=== PATIENT | female | born 1970 | race Caucasian/White ===

== ENCOUNTER → 2017-03-12 | Outpatient (CLI) | payer OTHER ==
[~2017-03-12] MED LIST: CHOL2000 PO; COEN1CAP7 PO; EFF/375 PO; LORA-741 PO; MULT-506 PO
--- NOTE | 2017-03-12 18:02 | DIAGNOSTIC IMAGING REPORT ---
TWO VIEW CHEST CLINICAL HISTORY: Preoperative examination. FINDINGS: PA and lateral chest radiographs are obtained. No prior studies are available for comparison at the time of dictation. The cardiomediastinal silhouette is unremarkable. The lungs and pleural spaces are clear. There is no pneumothorax. The bony thorax appears intact. Bilateral breast implants are suggested. Surgical clips are present in the axillae. IMPRESSION: No active disease in the chest. Electronically signed by: Talha Thurman M.D. 03/12/2017 6:01 PM Dictated Date/Time: 03/12/2017 6:00 PM
[2017-03-12 18:20] LABS: BASO % 0.4 %; BASO ABS # 0.02 K/uL (0-0.2); COMPLETE YES; EOS % 2.6 %; HEMATOCRIT 42.5 % (37-47); IG% 0.2 %; LYMPH ABS # 2.06 K/uL (1.2-3.4); MEAN CELL VOLUME 92.6 fL (80-100); MEAN CORPUSCULAR HEMOGLOBIN 30.7 pg (25-34); MEAN CORPUSCULAR HGB CONC 33.2 g/dl (32-36); MEAN PLATELET VOLUME 8.3 fL (7.4-10.4); MONO % 9.6 %; NEUT % 46.2 %; PLATELET COUNT 290 K/uL (130-400); RED BLOOD COUNT 4.59 M/uL (4.2-5.4); WHITE BLOOD COUNT 5.02 K/uL (4.8-10.8)
[2017-03-12 18:28] LABS: INR 0.9 (0.9-1.1)
[2017-03-12 18:40] LABS: BLOOD UREA NITROGEN 9 mg/dl (7-18); BUN/CREATININE RATIO 13.4 (10-20); CALCIUM 9.9 mg/dl (8.5-10.1); CARBON DIOXIDE 30 mmol/L (21-32); CHLORIDE 104 mmol/L (98-107); CREATININE 0.67 mg/dl (0.60-1.20); GLUCOSE 65 mg/dl (70-99); POTASSIUM 3.8 mmol/L (3.5-5.1); SODIUM 138 mmol/L (136-145)
== END | disposition home or self-care (01) ==
LOC: C.RAD 16:47
PROVIDERS: ATTEND Plastic Surgery
DX: Z98.82 Breast implant status (principal)

== ENCOUNTER → 2017-03-21 | Day surgery (SDC) | payer OTHER ==
[2017-03-20 13:35] VITALS: Ht 162.6 cm; Wt 60.9 kg
[~2017-03-21] VITALS: Ht 162.6 cm; Wt 60.9 kg
[~2017-03-21] MED LIST changes: +ACETAMINOPHEN IV 650 MG in EMPTY BAG 0 ML IV PRN; +ATROPINE SULFATE 0.1 MG/ML 5ML SYR IV PRN; +BUPIVACAINE 0.25% 30 ML VIAL ONE; +CEFAZOLIN 1000MG/55 ML D5W IV SCH; +DiphenhydrAMINE HCL 50 MG/ML VIAL IV STA; +DiphenhydrAMINE HCL 50 MG/ML VIAL ONE; +ENOXAPARIN 40 MG/0.4 ML SYR SQ SCH; +EpHEDrine SULFATE INJ 50 MG/ML AMP IV PRN; +FENTANYL CITRATE INJ 50 MCG/1 ML 2 ML VIAL IV PRN; +FENTANYL CITRATE INJ 50 MCG/1 ML 2 ML VIAL ONE; +FLUMAZENIL 0.1 MG/1 ML 10 ML VIAL IV PRN; +GLYCOPYRROLATE INJ 0.2 MG/ML VIAL ONE; +HYDROCODONE/ACETAMOPHEN 5/325MG TAB PO PRN; +HYDROmorphone INJ 0.5 MG/0.5 ML SYR ONE; +HYDROmorphone INJ 2 MG/ML SYR/VIAL IV PRN; +LABETALOL HCL IV 5 MG/ML 20ML IV PRN; +LACTATED RINGER'S 1000ML 1,000 ML IV SCH; +LIDOCAINE HCL 2% 2 ML VIAL (20MG/ML) ONE; +LIDOCAINE/EPINEPHRINE 1% INJ 50 ML VIAL ONE; +METOCLOPRAMIDE HCL INJ 5 MG/ML 2 ML VIAL IV PRN; +METOCLOPRAMIDE HCL INJ 5 MG/ML 2 ML VIAL ONE; +MIDAZOLAM HCL 1 MG/ML 2ML VIAL ONE; +NALOXONE HCL 0.4 MG/1 ML VIAL/CARP IV PRN; +NEOSTIGMINE METHYLSULFATE 5 MG/5 ML SYR ONE; +ONDANSETRON INJ 2 MG/ML 2 ML VIAL IV PRN; +ONDANSETRON INJ 2 MG/ML 2 ML VIAL ONE; +PATIENT'S ALLERGY INFO NEEDS ENTERED SCH; +PHENYLEPHRINE 100MCG/ML 5ML SYR IV PRN; +PROPOFOL IV EMULSION 10 MG/ML 20 ML VIAL IV ONE; +SCOPOLAMINE 1.5 MG TDSY TD ONE; +SODIUM CHLORIDE 0.9% 1000ML 1,000 ML IV SCH
--- NOTE | 2017-03-21 09:50 | History & Physical Bridge - SC ---
H&P Re-Evaluation Bridge Note: I have examined the patient, reviewed the History & Physical and in the interval since the performance of the History & Physical I have noted the following changes of clinical significance: No changes noted
--- NOTE | 2017-03-21 13:12 | [facility] Post Operative Brief Note ---
Immediate Operative Summary Operative Date Mar 21, 2017. Pre-Operative Diagnosis History of Breast Reconstruction with Silicone Implants Post-Operative Diagnosis same Procedure(s) Performed Bilateral Breast Implant Removal With Capsulectomy Surgeon Dr. Martin Bhandari Gate Tender Surgeon(s) CATRACHO Mendez Estimated Blood Loss 25CC Findings soft pliable capsules, intact implants, no palpable masses Specimens A. Left Breast Scar B. Left Breast Implant C. Left Breast Capsule D. Right Breast Scar E. Right Breast Implant F. Right Breast Capsule Drains LIZBETH x2 Anesthesia GET Complication(s) None Disposition Recovery Room / PACU
--- NOTE | 2017-03-21 13:17 | Discharge Instructions-SurgCtr ---
Discharge Instructions Date of Service Mar 21, 2017. Visit Reason for Visit: Hx Breast Reconstruction With Silicone Implants Discharge Discharge Diagnosis / Problem: s/p breast reconstruction Discharge Goals Goal(s): Decrease discomfort, Improve function Activity Recommendations Activity Limitations: as noted below Anesthesia . Post Anesthesia Instructions: If you have had General Anesthesia or IV Sedation: * Do not drive today. * Resume driving when surgeon permits. * Do not make important decisions or sign legal documents today. * Call surgeon for: 1. Temperature elevations greater than 101 degrees F. 2. Uncontrollable pain. 3. Excessive bleeding. 4. Persistent nausea and vomiting. 5. Medication intolerance (nausea, vomiting or rash). * For nausea and vomiting use only clear liquids such as: tea, soda, bouillon until nausea subsides, then gradually increase diet as tolerated. * If you have any concerns or questions, call your surgeon's office. If physician is unavailable and it is an emergency, call 911 or go to the nearest emergency room. . Instructions / Follow-Up Instructions / Follow-Up ACTIVITY RECOMMENDATIONS: __Normal activities _x_No bending, lifting or straining __No driving _x_Driving allowed when you are off pain medications _x_Walking permitted __You should have help at home for ___ days DRESSINGS: __No dressings required _x_Keep dressings dry/in place until first office visit __Remove dressings ___ and leave dressings off __Apply ice ___ days __Remove dressings and reapply garment __Apply antibiotic ointment (Bacitracin, Neosporin, etc) to wounds 3-4 times/ day for 10 days BATHING: _x_Keep dressings dry _x_Sponge bathing permitted __Showering permitted _x_No swimming, hot tubs or soaking in a tub MEDICATIONS: Resume previous medications unless instructed otherwise by your surgeon. _x_Do not use aspirin, Motrin, Advil or Ibuprofen as these may promote bleeding. Please use Tylenol. __Prescription(s) provided: pain meds given in office OTHER INSTRUCTIONS: _x_Record drain output 2-3 times per day SPECIAL CARE INSTRUCTIONS: * It is normal to have a mild fever after surgery. If your temperature is higher than 101.5 degrees F, please call the office at [phone]. * Constipation is a typical side effect of pain medication. An over-the- counter stool softener will help relieve this. * Leaking around surgical drains may occur and should not cause concern. Sometimes these drains become clogged. If this happens, remove the bulb and milk the clot out of the tube, then replace the bulb. * Drainage from wounds after liposuction is normal and should be expected. Garments will become soiled. You should protect furniture and bedding. This drainage should mostly subside within 2-3 days. Leave garments in place unless instructed to remove them. * If you have unusual drainage from a wound or are concerned you have an infection or have any questions or concerns, please call the office at [phone]. FOLLOW UP VISIT: If not already scheduled, please call the office, , when you return home after surgery to schedule an appointment to be seen in _3__ days. Diet Recommendations Home Diet: resume previous diet Procedures Procedures Performed: Bilateral Breast Implant Removal With Capsulectomy Pending Studies Studies pending at discharge: no Medical Emergencies . Who to Call and When: Medical Emergencies: If at any time you feel your situation is an emergency, please call 911 immediately. . Non-Emergent Contact Non-Emergency issues call your: Primary Care Provider, Surgeon Call Non-Emergent contact if: temperature is above 101.5, your pain is concerning you, wound has increased drainage, wound has increased redness . . "Provider Documentation" section prepared by Libia Bhandari. . [place] Drug Monitoring Program Search Results: patient reviewed within database, no issues identified Drug Monitoring Findings: documented in office chart
[2017-03-21] MEDS: MEPERIDINE HCL 25 MG/ML CARP IV PRN ×2 (13:53→13:59)
[2017-03-21 14:42] VITALS: TEMP 37.6
--- NOTE | 2017-03-21 14:58 | Anesthesia Progress Nt - [facility] ---
Anesthesia Post Op Note Date & Time Mar 21, 2017 at 14:57 Vital Signs Pain Intensity: 2 Vital Signs Past 12 Hours Date Time Temp Pulse Resp B/P (MAP) Pulse Ox O2 Delivery O2 Flow Rate FiO2 03/21/17 14:42 37.6 96 16 141/88 (105) 98 Room Air 03/21/17 14:28 37.2 93 16 135/74 97 Room Air 03/21/17 14:27 89 13 03/21/17 14:27 89 13 97 03/21/17 14:25 138/91 03/21/17 14:22 102 23 94 03/21/17 14:22 99 23 03/21/17 14:20 135/89 03/21/17 14:17 97 16 100 03/21/17 14:17 97 16 03/21/17 14:16 133/93 03/21/17 14:12 93 13 03/21/17 14:12 94 13 100 03/21/17 14:11 139/89 03/21/17 14:07 94 17 03/21/17 14:07 93 17 99 03/21/17 14:06 127/103 03/21/17 14:02 101 29 94 03/21/17 14:02 98 29 03/21/17 14:01 136/93 03/21/17 13:57 91 21 100 03/21/17 13:57 92 21 03/21/17 13:56 136/90 03/21/17 13:52 13 03/21/17 13:52 93 13 03/21/17 13:50 138/87 03/21/17 13:47 82 7 03/21/17 13:47 84 7 100 03/21/17 13:45 137/94 03/21/17 13:43 137/91 03/21/17 13:42 86 14 100 03/21/17 13:42 85 14 03/21/17 13:37 85 17 03/21/17 13:37 85 17 100 03/21/17 13:35 129/90 03/21/17 13:32 86 12 03/21/17 13:32 86 12 100 03/21/17 13:30 132/83 03/21/17 13:27 81 12 03/21/17 13:27 81 12 100 03/21/17 13:25 130/83 03/21/17 13:22 36.6 91 12 123/87 99 Mask 6 03/21/17 13:22 123/87 03/21/17 08:56 36.9 86 18 121/82 (95) 99 Room Air Notes Mental Status: alert / awake / arousable, participated in evaluation Pt Amnestic to Procedure: Yes Nausea / Vomiting: adequately controlled Pain: adequately controlled Airway Patency, RR, SpO2: stable & adequate BP & HR: stable & adequate Hydration State: stable & adequate Anesthetic Complications: no major complications apparent
[2017-03-21 15:08] VITALS: BP 126/88; PULSE 98; O2SAT 99
--- NOTE | 2017-03-22 09:03 | OPERATIVE REPORT ---
DATE OF OPERATION: 03/21/2017 PREOPERATIVE DIAGNOSIS: History of bilateral breast reconstruction with silicone implants, desiring removal. POSTOPERATIVE DIAGNOSIS: Same. PROCEDURE: Bilateral breast implant removal with total capsulectomy. SURGEON: Libia Bhandari MD FOOT MITER OPERATOR: Romina Cadena MS3. ANESTHESIA: General. COMPLICATIONS: None. INDICATION FOR THE PROCEDURE: The patient is a 46-year-old female who was diagnosed with right breast cancer and underwent bilateral immediate breast reconstruction with tissue expanders performed at another institution. She then underwent chemotherapy and radiation. Due to some surgical complications at that time, latissimus dorsi flap was performed at another facility. This was in conjunction with replacement of her right breast implant. She is now more than 1 year out from her final reconstructive result. She reports symptoms of continued fatigue and generalized malaise. She has undergone an extensive workup for her symptoms and feels that they are related to her breast implants. She desires implant removal. We discussed at length in the office that there is not a specific breast implant illness as she describes and that while I am happy to remove her implants, I do not anticipate any improvement in her symptomatology. She desired to undergo removal, stating she no longer wanted breast reconstruction. We discussed at that time possible attempted improvement in her excess skin of her mastectomy as well. BRIEF DESCRIPTION OF THE PROCEDURE: Risks, benefits, and alternatives of the procedure were explained to the patient who agreed and signed consent. She was identified and marked in the preoperative holding area. She was brought to the operating room where she was placed under general anesthesia without incident. Surgical site markings were applied. An elliptical incision was marked around her prior mastectomy scar in order to remove some of the likely excess skin from her prior tissue expansion. I began with the left side. 1% lidocaine with epinephrine was used to anesthetize the incisions. A 15 blade scalpel was used to make the skin incision and the incision was deepened using electrocautery. Scar and overlying skin was removed using electrocautery and passed off as specimen. I was able to see the margin of the pectoralis major muscle and therefore my incision into the capsule was made below this margin. Of note, the patient had requested an attempt at en bloc resection of her implant with total capsulectomy. We discussed that her implants were intact and that this would not provide any additional benefit while exposing her to more likely to just cause complications. Her implant was removed, inspected, and noted to be an Allergan style 2475 mL implant. It was completely intact. No seroma was noted within the capsule. Additionally, the patient requested testing for breast implant associated lymphoma. As there was no seroma fluid, there was no need for this test to be ordered. Allis clamps were used to retract the capsule and electrocautery was used to create a plane between the capsule and the posterior aspect of the pectoralis major muscle. Dissection was carried superiorly until the end of the capsule was identified. Dissection was then carried medially and laterally again between the capsule and the mastectomy flap and inferiorly down to the inframammary fold. The patient had requested posterior capsulectomy if possible. This was performed again using Allis clamps and manual retraction to elevate the capsule using electrocautery to dissect beneath the capsule. There was minimal violation of some intercostal musculature, and the patient remained stable throughout. Once the entire capsule was removed, it was passed off as specimen. Per the patient's request, implants as well as capsule were photographed and this will be entered into our [employer] record. Hemostasis was achieved with electrocautery. The wound was packed using saline-soaked gauze sponges and Marcaine was then topically applied. A similar procedure was undertaken on the right side. The latissimus dorsi flap was able to be identified. Due to complete muscle coverage, the latissimus flap was directly incised down to the capsule and implant was again removed. A total capsulectomy was performed again as described on the left side. Hemostasis was achieved with electrocautery. No violation of musculature occurred on the right side. Hemostasis was again achieved with electrocautery, wound was packed with Marcaine and saline soaked sponges. I then returned to the left side. Wound was copiously irrigated with normal saline and inspected for hemostasis. A 15-Yoruba David drain was then placed posterior to the pectoralis muscle. Pectoralis muscle was tacked down along the inframammary fold in order to restore some of the anatomy using 2-0 Vicryl interrupted sutures. There was some excess skin noted on the right side from the inferior aspect of the flap. The skin was marked for excision and removed using a 15 blade scalpel followed by electrocautery. I was able to achieve a tension free closure following this. 2-0 Vicryl deep dermal sutures were placed followed by 2-0 PDO running Quill suture and 3-0 Monocryl running subcuticular suture. Dermabond Prineo was applied. On the right side, due to the extra latissimus flap, I tacked down the pectoralis muscle along the inframammary fold and latissimus was then laid anteriorly to this, 2-0 Vicryl suture was used to reapproximate the incision. There was no excess skin on the right side. 2-0 PDO running Quill suture was placed followed by 3-0 Monocryl running subcuticular suture. Prior to closure, a 15-Yoruba David drain was placed. Both drains were sutured into place using 3-0 nylon suture. Dermabond Prineo followed by a dry dressing was applied. An abdominal binder was placed to provide compression. The procedure was tolerated well. Both implants and capsules were photographed for the patient. Both capsules were noted to be pliable without evidence of capsular contracture. No evidence of implant rupture. No palpable masses or evidence of cancer recurrence noted. The patient was awakened and transferred to recovery in satisfactory condition. I attest to the content of the Intraoperative Record and any orders documented therein. Any exceptions are noted below. [facility]
== END | disposition home or self-care (01) ==
LOC: X.SURG 08:44
PROVIDERS: ATTEND Plastic Surgery
DX: Z45.812 Encounter for adjustment or removal of left breast implant (principal); Z45.811 Encounter for adjustment or removal of right breast implant; Z98.82 Breast implant status; F32.9 Major depressive disorder, single episode, unspecified; F41.9 Anxiety disorder, unspecified; Z90.710 Acquired absence of both cervix and uterus; Z90.13 Acquired absence of bilateral breasts and nipples; Z92.21 Personal history of antineoplastic chemotherapy; Z85.3 Personal history of malignant neoplasm of breast; Z92.3 Personal history of irradiation